=== PATIENT | female | born 1955 | race Caucasian/White ===

== ENCOUNTER 2016-06-26 17:10 | Emergency (ER) | payer MEDICARE, MEDICAID ==
[2016-06-26 18:35] VITALS: BP 119/79
--- NOTE | 2016-06-26 19:51 | RAD ---
INDICATION: Right ulnar side hand and small finger pain after a fall. Patient reports dislocation at the right small finger that she "put back in". COMPARISON: None. TECHNIQUE: 4 views of the right hand were obtained. FINDINGS: Involving the right small finger there is dorsal and ulnar dislocation, approximately half the width of the phalanges laterally and a full bone width dorsally, of the proximal interphalangeal joint. Remaining visualized bones are intact and appropriately aligned. IMPRESSION: Dislocation of the right small finger proximal interphalangeal joint.
[2016-06-26] MEDS ORDERED: Ondansetron ODT TAB* 4 MG SL PRN (20:09)
[2016-06-26] MEDS ORDERED: LORazepam TAB(*) 1 MG PO ONE (20:09)
[2016-06-26] MEDS ORDERED: Ondansetron ODT TAB* 4 MG SL ONE (20:17)
--- NOTE | 2016-06-26 21:11 | UC ---
Upper Extremity HPI - HPI Summary HPI Summary: Patient arrives to with CC of falling and injuring her right pinky finger. She states she was walking on sidewalk at around 1630 and caught self with right hand to break her fall, she c/o right hand pain with swollen 5th finger, ice applied on arrival. Patient denies hitting head, LOC but states she is feeling slightly nauseas. Nausea occurred 30 minutes after the injury and notes that it was d/t the pain. She denies previous injury to the hand. Denies blood thinners. Pain is located on the ulnar side of the right pinky finger and extends up to the wrist. Denies wrist injury or elbow pain. Denies numbness or tingling or pallor. Pulses +2 bilaterally. - History of Current Complaint Chief Complaint: UCUpperExtremity Stated Complaint: FINGER INJURY Time Seen by Provider: 06/26/16 19:22 Hx Obtained From: Patient ?: No Onset/Duration: Sudden Onset Severity Initially: Moderate Severity Currently: Moderate Pain Intensity: 5 Pain Scale Used: 0-10 Numeric Location Of Pain: Is Discrete @ - right pinky finger Aggravating Factor(s): Movement, Lifting, Flexion, Extension Alleviating Factor(s): Ice Associated Signs And Symptoms: Positive: Redness - Risk Factors Non-Orthopedic Risk Factor: Negative DVT Risk Factors: Negative Septic Arthritis Risk Factor: Negative Compartment Syndrome Risk Factors: Pain - Allergies/Home Medications Allergies/Adverse Reactions: Allergies Allergy/AdvReac Type Severity Reaction Status Date / Time No Known Allergies Allergy Verified 06/26/16 18:34 Home Medications: Home Medications NK [No Home Medications Reported] 06/26/16 [History Confirmed 06/26/16] PMH/Surg Hx/FS Hx/Imm Hx Previously Healthy: Yes - Surgical History Surgical History: Yes Surgery Procedure, Year, and Place: hysterectomy - Social History Occupation: Employed Full-time Lives: With Family Alcohol Use: None Substance Use Type: None Smoking Status (MU): Light Every Day Tobacco Smoker Amount Used/How Often: 1-3 ciggs per day Review of Systems Constitutional: Negative Skin: Negative Respiratory: Negative Cardiovascular: Negative Gastrointestinal: Other - nausea Genitourinary: Negative Motor: Decreased ROM - unable to move right pinky - flexion or extension d/t pain Neurovascular: Negative Musculoskeletal: Arthralgia - over right pinky and throughout right hand Psychological: Anxious All Other Systems Reviewed And Are Negative: Yes Physical Exam Triage Information Reviewed: Yes Appearance: Well-Appearing, No Pain Distress Vital Signs: Initial Vital Signs Temp 96.9 F 06/26/16 18:29 Pulse 81 06/26/16 18:29 Resp 20 06/26/16 18:29 BP 119/79 06/26/16 18:29 Pulse Ox 100 06/26/16 18:29 Vital Signs Reviewed: Yes Eye Exam: Normal Eyes: Positive: Conjunctiva Clear Neck exam: Normal Neck: Positive: Supple, No Lymphadenopathy Respiratory Exam: Normal Respiratory: Positive: Chest non-tender Cardiovascular Exam: Normal Musculoskeletal: Positive: Strength Limited @ - d/t pain of right pinky finger, ROM Limited @ - d/t pain of right pinky finger Neurological Exam: Normal Psychological Exam: Normal Psychological: Positive: Normal Response To Family Skin Exam: Normal Upper Extremity Course/Dx - Course Course Of Treatment: xray shows dislocation of the right pinky. given zofran and ativan for nausea and anxiety prior to reduction. reduced right pinky finger without complications. s/p reduction imaging shows reduction successful. patient encourage to follow up with PCP as she will need follow up with ortho. she is not from this area, so I will not refer to our ortho group. - Differential Dx/Diagnosis Differential Diagnosis/HQI/PQRI: Contusion, Fracture (Open), Fracture (Closed), Strain Provider Diagnoses: DISLOCATION OF RIGHT PINKY FINGER Discharge - Discharge Plan Condition: Stable Disposition: HOME Patient Education Materials: Finger Dislocation (ED) Referrals: Darleen Hughes NP [Primary Care Provider] - Additional Instructions: FOLLOW UP WITH PCP AND ORTHOPEDIC PHYSICIAN. CONTINUW WITH SPLINT UNTIL FOLLOW UP WITH ORTHO. YOU MAY TAKE OFF TO SHOWER, BUT REAPPLY THE SPLINT AFTER. ICE AND IBUPROFEN FOR SWELLING.
--- NOTE | 2016-06-26 21:12 | RAD ---
Indication: Post reduction fifth proximal interphalangeal joint dislocation. Comparison: 1931 hours exam of the same date. Technique: 3 views RIGHT fifth finger REPORT AND IMPRESSION: Restored anatomic alignment at the proximal interphalangeal joint. Negative for fracture. Moderate soft tissue swelling most prominent at the level of the proximal interphalangeal joint.
== END 2016-06-26 21:15 | disposition home or self-care (01) ==
LOC: UCEAST 17:10
DX: S63.256A Unspecified dislocation of right little finger, initial encounter (principal); W01.0XXA Fall on same level from slipping, tripping and stumbling without subsequent striking against object, initial encounter; Y93.9 Activity, unspecified; Y99.9 Unspecified external cause status
CPT/HCPCS: 73140; 99201; A9270-GY; G0463

== ENCOUNTER 2017-03-31 19:27 | Emergency (ER) | payer MEDICARE, MEDICAID ==
[2017-03-31] MEDS ORDERED: NS 0.9% 1000 ML* 1,000 ML IV ONE (21:14)
[2017-03-31] MEDS ORDERED: Ondansetron INJ* 2 MG/ML VIAL IV ONE (21:14)
[2017-03-31] MEDS ORDERED: Morphine INJ* 4 MG/ML 1 ML CARPUJECT IV ONE (21:14)
[2017-03-31] MEDS ORDERED: Morphine INJ* 2 MG/ML 1 ML SYRINGE (TWO MG - NEW SYRINGE VERSION) ONE (21:27)
[2017-03-31 22:55] LABS: ABS Basophils 0.1 10^3/ul (0-0.2); ABS Eosinophils 0.1 10^3/ul (0-0.6); ABS Lymphocytes 3.3 10^3/ul (1.0-4.8); ABS Monocytes 0.4 10^3/ul (0-0.8); ABS Neutrophils 5.1 10^3/ul (1.5-7.7); ABS Nucleated RBC 0 10^3/ul; Eosinophil % 0.7 % (0-6); Hematocrit 42 % (35-47); Hemoglobin 14.4 g/dl (12.0-16.0); Mean Corpuscular HGB Conc 34 g/dl (31-36); Mean Corpuscular Hemoglobin 32 pg (27-31); Mean Corpuscular Volume 94 fL (80-97); Mean Platelet Volume 8 um3 (7.4-10.4); Nucleated Red Blood Cells % 0.1; Platelet Count 236 10^3/ul (150-450); Red Blood Count 4.49 10^6/ul (4.0-5.4); Red Cell Distribution Width 15 % (10.5-15)
[2017-03-31] MEDS ORDERED: Al Hydrox/Mg Hydrox/Simet LIQ* 30 ML UDC PO ONE (22:57)
[2017-03-31] MEDS ORDERED: Al Hydrox/Mg Hydrox/Simet LIQ* 30 ML UDC ONE (22:58)
[2017-03-31 23:11] LABS: EGFR Non-African American 71.1 (>60)
[2017-03-31] MEDS ORDERED: Iohexol 350* (CONTRAST) 500 ML MDV IV ONE (23:16)
[2017-03-31 23:21] LABS: Urine Appearance Clear; Urine Blood 1+ (Negative); Urine Color Yellow; Urine Ketones Negative (Negative); Urine Protein Negative (Negative); Urine Urobilinogen Negative (Negative)
[2017-03-31 23:21] LABS: INR 0.88 (0.77-1.02)
[2017-04-01] MEDS ORDERED: HYDROcodone/ACETAMIN 5-325 MG* 1 TAB PO ONE ×2 (01:19→01:20)
[2017-04-01] MEDS ORDERED: Ketorolac INJ* 30 MG/ML 1 ML VIAL IV ONE (01:19)
--- NOTE | 2017-04-01 01:29 | ED ---
Luis Finnegan Natalie, scribed for Mohsen Horta MD on 03/31/17 at 2118 . Abdominal Pain/Female - HPI Summary HPI Summary: The pt is a 61 y/o F presenting to the ED c/o sharp LLQ pain starting 3 days ago and gradually worsening. The pain radiates to groin area, down left leg through knee and ankle, and to left low back. The pain is rated 10/10. The pain is aggravated by movement and is alleviated by nothing. Pt additionally c/o hematuria and loss of appetite. Pt denies swelling in feet. She has hx of back problems and diverticulitis. - History of Current Complaint Chief Complaint: EDGeneral Stated Complaint: LT SIDED PAIN Time Seen by Provider: 03/31/17 20:57 Hx Obtained From: Patient Onset/Duration: Lasting Days - starting 3 days ago, Still Present Timing: Constant Severity Initially: Severe Severity Currently: Severe Pain Intensity: 10 Pain Scale Used: 0-10 Numeric Location: Discrete At: LLQ Radiates: Yes Radiates to: Back, Other - groin, left leg Character: Sharp Aggravating Factor(s): Movement Alleviating Factor(s): Nothing Associated Signs and Symptoms: Positive: Back Pain, Urinary Symptoms - hematuria , Decreased Appetite Allergies/Adverse Reactions: Allergies Allergy/AdvReac Type Severity Reaction Status Date / Time No Known Allergies Allergy Verified 06/26/16 18:34 PMH/Surg Hx/FS Hx/Imm Hx Previously Healthy: No GI History: Reports: Other GI Disorders - diverticulitis Musculoskeletal History: Reports: Hx Back Problems - Surgical History Surgery Procedure, Year, and Place: hysterectomy Infectious Disease History: No Infectious Disease History: Denies: Traveled Outside the [place] in Last 30 Days - Family History Known Family History: Negative: Hypertension, Diabetes - Social History Alcohol Use: None Substance Use Type: Reports: None Smoking Status (MU): Light Every Day Tobacco Smoker Amount Used/How Often: 1-3 ciggs per day Review of Systems Positive: Abdominal Pain - LLQ and groin Positive: hematuria Positive: Other - pain in back and left leg, no swelling in feet Neurological: Other - loss of appetite All Other Systems Reviewed And Are Negative: Yes Physical Exam Triage Information Reviewed: Yes Vital Signs On Initial Exam: Initial Vitals Temp Pulse Resp BP Pulse Ox 96.7 F 71 20 118/75 98 03/31/17 19:31 03/31/17 19:31 03/31/17 19:31 03/31/17 19:31 03/31/17 19:31 Vital Signs Reviewed: Yes Appearance: Positive: Well-Appearing, No Pain Distress Skin: Positive: Warm, Skin Color Reflects Adequate Perfusion, Dry Head/Face: Positive: Normal Head/Face Inspection Eyes: Positive: EOMI, SULTANA ENT: Positive: Normal ENT inspection Neck: Positive: Supple, Nontender Respiratory/Lung Sounds: Positive: Clear to Auscultation, Breath Sounds Present Cardiovascular: Positive: RRR, Pulses are Symmetrical in both Upper and Lower Extremities Abdomen Description: Positive: Soft, Other: - Mild tenderness in LLQ Bowel Sounds: Positive: Present Musculoskeletal: Positive: Strength/ROM Intact, Other - good ROM of left leg with associated pain, slightly less strong than right which may be secondary to pain Neurological: Positive: Normal, Sensory/Motor Intact, Alert, Oriented to Person Place, Time Psychiatric: Positive: Affect/Mood Appropriate Diagnostics - Vital Signs Vital Signs Temp Pulse Resp BP Pulse Ox 03/31/17 19:31 96.7 F 71 20 118/75 98 - Laboratory Lab Results: Lab Results 03/31/17 03/31/17 03/31/17 Range/Units 21:09 21:30 21:30 WBC (3.5-10.8) 10^3/ul RBC (4.0-5.4) 10^6/ul Hgb (12.0-16.0) g/dl Hct (35-47) % MCV (80-97) fL MCH (27-31) pg MCHC (31-36) g/dl RDW (10.5-15) % Plt Count (150-450) 10^3/ul MPV (7.4-10.4) um3 Neut % (Auto) (38-83) % Lymph % (Auto) (25-47) % Christian % (Auto) (1-9) % Eos % (Auto) (0-6) % Baso % (Auto) (0-2) % Absolute Neuts (auto) (1.5-7.7) 10^3/ul Absolute Lymphs (auto) (1.0-4.8) 10^3/ul Absolute Monos (auto) (0-0.8) 10^3/ul Absolute Eos (auto) (0-0.6) 10^3/ul Absolute Basos (auto) (0-0.2) 10^3/ul Absolute Nucleated RBC 10^3/ul Nucleated RBC % INR (Anticoag Therapy) 0.88 (0.77-1.02) APTT 30.9 (26.0-36.3) seconds Sodium 137 (133-145) mmol/L Potassium 3.6 (3.5-5.0) mmol/L Chloride 106 (101-111) mmol/L Carbon Dioxide 23 (22-32) mmol/L Anion Gap 8 (2-11) mmol/L BUN 16 (6-24) mg/dL Creatinine 0.82 (0.51-0.95) mg/dL Est GFR ( Amer) 91.5 (>60) Est GFR (Non-Af Amer) 71.1 (>60) BUN/Creatinine Ratio 19.5 (8-20) Glucose 90 (70-100) mg/dL Lactic Acid (0.5-2.0) mmol/L Calcium 9.5 (8.6-10.3) mg/dL Total Bilirubin 0.40 (0.2-1.0) mg/dL AST 11 L (13-39) U/L ALT 17 (7-52) U/L Alkaline Phosphatase 69 (34-104) U/L Troponin I 0.00 (<0.04) ng/mL C-Reactive Protein 5.50 H (< 5.00) mg/L Total Protein 7.2 (6.4-8.9) g/dL Albumin 4.2 (3.2-5.2) g/dL Globulin 3.0 (2-4) g/dL Albumin/Globulin Ratio 1.4 (1-3) Urine Color Yellow Urine Appearance Clear Urine pH 6.0 (5-9) Ur Specific [place] 1.010 (1.010-1.030) Urine Protein Negative (Negative) Urine Ketones Negative (Negative) Urine Blood 1+ H (Negative) Urine Nitrate Negative (Negative) Urine Bilirubin Negative (Negative) Urine Urobilinogen Negative (Negative) Ur Leukocyte Esterase Negative (Negative) Urine WBC (Auto) Absent (Absent) Urine RBC (Auto) Trace(0-2/hpf) (Absent) Ur Squamous Epith Cells Present H (Absent) Urine Bacteria 1+ H (Absent) Urine Glucose Negative (Negative) 03/31/17 03/31/17 Range/Units 21:30 21:30 WBC 9.0 (3.5-10.8) 10^3/ul RBC 4.49 (4.0-5.4) 10^6/ul Hgb 14.4 (12.0-16.0) g/dl Hct 42 (35-47) % MCV 94 (80-97) fL MCH 32 H (27-31) pg MCHC 34 (31-36) g/dl RDW 15 (10.5-15) % Plt Count 236 (150-450) 10^3/ul MPV 8 (7.4-10.4) um3 Neut % (Auto) 57.1 (38-83) % Lymph % (Auto) 37.0 (25-47) % Christian % (Auto) 4.5 (1-9) % Eos % (Auto) 0.7 (0-6) % Baso % (Auto) 0.7 (0-2) % Absolute Neuts (auto) 5.1 (1.5-7.7) 10^3/ul Absolute Lymphs (auto) 3.3 (1.0-4.8) 10^3/ul Absolute Monos (auto) 0.4 (0-0.8) 10^3/ul Absolute Eos (auto) 0.1 (0-0.6) 10^3/ul Absolute Basos (auto) 0.1 (0-0.2) 10^3/ul Absolute Nucleated RBC 0 10^3/ul Nucleated RBC % 0.1 INR (Anticoag Therapy) (0.77-1.02) APTT (26.0-36.3) seconds Sodium (133-145) mmol/L Potassium (3.5-5.0) mmol/L Chloride (101-111) mmol/L Carbon Dioxide (22-32) mmol/L Anion Gap (2-11) mmol/L BUN (6-24) mg/dL Creatinine (0.51-0.95) mg/dL Est GFR ( Amer) (>60) Est GFR (Non-Af Amer) (>60) BUN/Creatinine Ratio (8-20) Glucose (70-100) mg/dL Lactic Acid 1.2 (0.5-2.0) mmol/L Calcium (8.6-10.3) mg/dL Total Bilirubin (0.2-1.0) mg/dL AST (13-39) U/L ALT (7-52) U/L Alkaline Phosphatase (34-104) U/L Troponin I (<0.04) ng/mL C-Reactive Protein (< 5.00) mg/L Total Protein (6.4-8.9) g/dL Albumin (3.2-5.2) g/dL Globulin (2-4) g/dL Albumin/Globulin Ratio (1-3) Urine Color Urine Appearance Urine pH (5-9) Ur Specific [place] (1.010-1.030) Urine Protein (Negative) Urine Ketones (Negative) Urine Blood (Negative) Urine Nitrate (Negative) Urine Bilirubin (Negative) Urine Urobilinogen (Negative) Ur Leukocyte Esterase (Negative) Urine WBC (Auto) (Absent) Urine RBC (Auto) (Absent) Ur Squamous Epith Cells (Absent) Urine Bacteria (Absent) Urine Glucose (Negative) Result Diagrams: 03/31/17 21:30 03/31/17 21:30 Lab Statement: Any lab studies that have been ordered have been reviewed, and results considered in the medical decision making process. - CT Abdomen/Pelvis CTA CT Interpretation: No Acute Changes - No evidence of acute pathology. ED physician has reviewed this report. CT Interpretation Completed By: Radiologist - Ultrasound No standard instances Ultrasound Interpretation: No Acute Changes - US LE Venous Doppler: No evidence of acute DVT demonstrated in the left lower extremity. ED physician has reviewed this report. Ultrasound Interpretation Completed By: Radiologist - EKG 21:44 Cardiac Rate: NL EKG Rhythm: Sinus Rhythm - 61 BPM EKG Interpretation: RBBB. Nml ST. No ectopy. Abdominal Pain Fem Course/Dx - Course Course Of Treatment: Medications reviewed. DISCUSSED RESULTS WITH PATIENT AND . NO EVIDENCE OF ANYEURYSM OR DVT. LEFT LEG STRENGTH LIMITED BY PAIN. PATIENT IS ABLE TO MOVE THE LEG BUT, WITH INCREASED PAIN. NO NEURO DEFICIT ON EXAM IN ED AT THIS TIME. F/U PMD; RETURN IF WORSE. - Diagnoses Provider Diagnoses: Left leg pain, Low back pain, Abdominal pain Discharge - Discharge Plan Condition: Stable Disposition: HOME Prescriptions: HYDROcodone/ACETAMIN 5-325 MG* [[facility] 5-325 TAB*] 1 tab PO Q4H PRN #20 tab MDD 6 PRN Reason: Pain Patient Education Materials: Back Pain (ED), Leg Pain (ED), Abdominal Pain (ED) Referrals: Non Staff,Doctor [Primary Care Provider] - [facility] [place] [facility] [place]] Additional Instructions: FOLLOW UP WITH YOUR DOCTOR. RETURN TO THE EMERGENCY DEPARTMENT FOR ANY WORSENING OF YOUR CONDITION; PAIN, WEAKNESS, NUMBNESS, LOSS OF CONTROL OF BOWEL OR BLADDER OR QUESTIONS OR CONCERNS. The documentation as recorded by the Luis farris Natalie accurately reflects the service I personally performed and the decisions made by me, Mohsen Horta MD.
[2017-04-01 01:42] VITALS: BP 101/60
--- NOTE | 2017-04-01 07:09 | RAD ---
INDICATION: Left leg pain. COMPARISON: There are no prior studies available for comparison. TECHNIQUE: Multiple real-time, color flow and Doppler tracings of the left lower extremity were obtained. FINDINGS: The common femoral, femoral, profunda femoral and popliteal veins all demonstrate normal compressibility, augmentation with compression and phasic response with respiration. The posterior tibial and peroneal veins demonstrate normal compressibility and augmentation with compression. IMPRESSION: NO EVIDENCE FOR DEEP VENOUS THROMBOSIS.
--- NOTE | 2017-04-01 07:53 | RAD ---
INDICATION: Left lower quadrant and flank pain, left leg pain evaluate for aneurysm. COMPARISON: There are no prior studies available for comparison. TECHNIQUE: A CT angiogram of the abdomen and pelvis was performed with intravenous contrast following intravenous injection of 100 ml of Omnipaque 350 nonionic contrast. Contiguous axial sections were obtained from the lung bases through the symphysis pubis. Images were reconstructed in the coronal and sagittal planes and in a 3-D volume rendered reformatted. FINDINGS: CT OF THE ABDOMEN AND PELVIS: There is mild dependent bilateral lower lobe subsegmental atelectasis. No pleural effusion is seen. The liver appears mildly enlarged. There are couple small hypodensities present within the liver measuring approximately 0.5 cm each which are too small to characterize by CT. The patient is status post cholecystectomy. The spleen demonstrates heterogeneous contrast enhancement. The pancreas appears to be within normal limits. The kidneys and adrenal glands are normal in size. No hydronephrosis is seen. No significant focal renal abnormality is seen. There is a retroaortic left renal vein. No significant enlarged retroperitoneal lymph nodes are seen. The stomach, small and large bowel appear nondistended. The appendix appears to be within normal limits. There are few scattered diverticuli within the colon. There is no evidence for diverticulitis or colitis. No free intraperitoneal air or fluid is seen. No significant focal osseous abnormality is seen. CT ANGIOGRAM OF THE ABDOMINAL AORTA: The abdominal aorta is normal in caliber. There is no evidence for aortic dissection. There is mild to moderate atherosclerotic change present. The iliac, common femoral and proximal superficial femoral arteries appear within normal limits. The celiac, superior mesenteric and inferior mesenteric arteries appear widely patent. There are single bilateral renal arteries without evidence for hemodynamically significant stenosis. IMPRESSION: 1. NO EVIDENCE FOR AORTIC DISSECTION OR ANEURYSM. 2. NO EVIDENCE FOR ACUTE FINDING.
== END 2017-04-01 02:13 | disposition home or self-care (01) ==
LOC: ED 19:27
DX: R10.32 Left lower quadrant pain (principal); M54.5 Low back pain; M79.605 Pain in left leg; F17.210 Nicotine dependence, cigarettes, uncomplicated
CPT/HCPCS: 36415; 74174; 80053; 81003; 81015; 83605; 84484; 85025; 85610; 85730; 86140; 87086; 93005; 96361; 96374; 96375; 99283; A9270-GY; J1885; J2270; J2405; Q9967